=== PATIENT | female | born 1955 | race African-American/Black ===

== ENCOUNTER 2016-08-23 13:42 | Emergency (ER) | payer SELFPAY ==
[2016-08-23 13:52] VITALS: BP 170/89; BMI 34.4
[2016-08-23] MEDS ORDERED: DEMEROL INJ IM ONE (14:03)
[2016-08-23] MEDS ORDERED: ZOFRAN INJ 4 MG VIAL IM ONE (14:03)
--- NOTE | 2016-08-23 14:05 | DR.EXTPAIN ---
HPI - Time seen Time seen: 13:50 - PCP Primary Care Physician: ILIANA DIOP/ DEVYN - HPI Comment HPI Comment: As below; worse w/wt bearing; hydrocodone 325 for her back does not help at all; she does not want xrays d/t cost. - Complaint/Symptoms Chief Complaint:: PT C/O SLIPPING DOWN IN HER TUB 2 DAYS AGO AND SHE IS C/O LEFT KNEE PAIN AND EDEMA".. Self Treatment fo Chief Complaint: NORCO.. WITHOUT RELIEF - Source History Provided: Patient, Significant Other - Mode of arrival Mode of Arrival: Wheelchair - Timing Onset of Chief Complaint: 08/28/16 PMH - PMH Past Medical History: Yes Past Medical History: Hypertension Past Medical History Comment: chronic lbp Past Surgical History: No - Family History History of Family Medical Conditions: Yes Family Medical History: Cancer - Social History Does patient currently use any type of tobacco product: No Have you used tobacco products in the last 12 months: No Type of Tobacco Use: None Does any household member use tobacco: No Alcohol Use: None Do you use any recreational Drugs:: No Lives With: Family Lives Where: Home - infectious screening In the last 2 months have you had wt loss of >10#?: NO Have you had fever, night sweats or hemotysis?: No Have you traveled outside the country in the last 6 months?: No Isolation: Standard ROS - Review of Systems Constitutional: No Symptoms Reported Eyes: No Symptoms Reported ENTM: No Symptoms Reported Respiratoy: No Symptoms Reported Cardiovascular: No Symptoms Reported Gastrointestinal/Abdominal: No Symptoms Reported Genitourinary: No Symptoms Reported Neurological: No Symptoms Reported Musculoskeletal: See HPI, Joint Pain, Joint Swelling Integumentary: No Symptoms Reported PE - Vital Signs Vitals: Pulse Rate 87 Respiratory Rate 20 Blood Pressure [Right Arm] 128/74 Blood Pressure 170/89 O2 Sat by Pulse Oximetry 100 - General Limitations: No Limitations General Appearance: Alert - Head Head Exam: Normal Inspection - Eyes Eye exam: Normal Appearance - Neck Neck Exam: Normal Inspection - Chest Chest Inspection: Normal Inspection - Respiratory Respiratory Exam: Normal Lung Sounds Bilat - Cardiovascular Cardiovascular Exam: Regular Rate - Extremities Extremities Exam: Tenderness, Joint Swelling (mod left mid knee pain) - Diagnosis Discharge Problem: Left knee pain Qualifiers: Chronicity: acute Qualified Code(s): M25.562 - Pain in left knee - Discharge Plan Disposition: HOME, SELF-CARE Condition: Stable Prescriptions: Prednisone [Prednisone Tab 10 mg] 10 mg PO BID #10 tab - Follow ups/Referrals Follow ups/Referrals: Matheus Graham [Primary Care Provider] - 3 days - Instructions Instructions: Knee Pain
[2016-08-23] MEDS ORDERED: DEMEROL INJ ONE (14:17)
[2016-08-23] MEDS ORDERED: ZOFRAN INJ 4 MG VIAL ONE (14:17)
== END 2016-08-23 14:32 | disposition home or self-care (01) ==
LOC: ER 13:58
DX: M25.562 Pain in left knee (principal)
CPT/HCPCS: 96372; 99282; J2175; J2405